=== PATIENT | female | born 2000 | race Caucasian/White ===

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

== ENCOUNTER 2023-08-05 16:35 | Emergency (ER) | payer SELFPAY ==
[2023-08-05 17:41] LABS: BASOPHILS PERCENT AUTO 0.3 % (0.0-1.0); EOSINOPHILS PERCENT AUTO 0.1 % (0.0-6.0); HEMATOCRIT 42.3 % (37.0-47.0); HEMOGLOBIN 14.3 gm/dl (12.0-16.0); IMMATURE GRAN ABSOLUTE AUTO 0.04 K/mm3 (0.00-0.05); IMMATURE GRAN PERCENT AUTO 0.4 % (0.0-0.4); LYMPHOCYTES PERCENT AUTO 18.7 % (24.0-44.0); MEAN CORPUSCULAR HEMOGLOBIN 28.2 pg (28.0-32.0); MEAN CORPUSCULAR HGB CONC 33.8 g/dl (32.0-36.0); MEAN CORPUSCULAR VOLUME 83.4 fl (83.0-99.0); MEAN PLATELET VOLUME 8.1 fl (9.4-12.3); MONOCYTES ABSOLUTE AUTO 0.5 K/mm3 (0.0-0.8); MONOCYTES PERCENT AUTO 4.8 % (0.0-8.0); NEUTROPHILS PERCENT AUTO 75.7 % (41.0-71.0); PLATELET COUNT,PLT 419 K/mm3 (150-400); RED BLOOD CELL COUNT 5.07 M/mm3 (4.10-5.30); WHITE BLOOD CELL COUNT,WBC 10.59 K/mm3 (3.9-11.3)
[2023-08-05 17:52] LABS: APPEARANCE,URINE CLEAR (Clear); BILIRUBIN,URINE NEGATIVE (Negative); COLOR,URINE YELLOW (Yellow); GLUCOSE,URINE NEGATIVE (Negative); KETONES,URINE NEGATIVE (Negative); LEUKOCYTE ESTERASE,URINE NEGATIVE (Negative); NITRITE,URINE NEGATIVE (Negative); OCCULT BLOOD,URINE NEGATIVE (Negative); PH,URINE 6.5 (5.0-8.0); PROTEIN,URINE NEGATIVE (Negative); UROBILINOGEN,URINE 0.2 (0.2-1.0)
[2023-08-05 18:02] LABS: ALBUMIN 3.9 g/dl (3.4-5.0); ANION GAP 17.8 (5-15); BILIRUBIN TOTAL 0.5 mg/dL (0.2-1.0); BUN/CREATININE RATIO 8.9 (14-18); CALCIUM 9.6 mg/dL (8.5-10.1); CREATININE 0.9 mg/dL (0.55-1.02); EST CRCL DRUG DOSING (CG) 96.15 mL/min; POTASSIUM,K 3.8 mEq/L (3.5-5.1); PROTEIN TOTAL,TP 7.9 g/dl (6.4-8.2)
[2023-08-05] MEDS: Lactated Ringers 1,000 ML IV ONE (18:13)
[2023-08-05 18:15] LABS: LACTIC ACID 1.5 mmol/L (0.4-2.0)
[2023-08-05] MEDS: Prochlorperazine 10 MG/2 ML SDV IVPUSH ONE (18:15)
[2023-08-05] MEDS: diphenhydrAMINE 50 MG/ML SDV IVPUSH ONE (18:17)
[2023-08-05] MEDS: Sodium Chloride 0.9% 10 ML Syringe FLUSH PRN (18:20)
[2023-08-05 18:26] LABS: AMPHETAMINES SCREEN, URINE PRESUMPTIVE POSITIVE (CUTOFF=500); METHAMPHETAMINES SCREEN, URINE PRESUMPTIVE POSITIVE (CUTOFF=500)
[2023-08-05 18:27] LABS: C-REACTIVE PROTEIN 0.14 mg/dL (<0.30); TROPONIN I HIGH SENSITIVITY < 4 pg/mL (<=51)
[2023-08-05 18:27] LABS: BARBITURATE SCREEN,URINE NEGATIVE (CUTOFF=200); BENZODIAZEPINES SCREEN,URINE NEGATIVE (CUTOFF=150); BUPRENORPHINE SCREEN,URINE NEGATIVE (CUTOFF=10); METHADONE SCREEN, URINE NEGATIVE (CUTOFF=200); OXYCODONE SCREEN,URINE NEGATIVE (CUT0FF=100); THC SCREEN,URINE 20 NG/ML NEGATIVE (CUTOFF=50)
[2023-08-05 21:47] VITALS: BP 113/60; PULSE 109
== END 2023-08-05 21:42 ==
LOC: JD.ED 16:35
DX: F11.23 Opioid dependence with withdrawal (principal); F19.10 Other psychoactive substance abuse, uncomplicated; E66.9 Obesity, unspecified; Z86.16 Personal history of COVID-19; Z91.011 Allergy to milk products; Z68.29 Body mass index [BMI] 29.0-29.9, adult
CPT/HCPCS: 36415; 71046; 80053; 80306; 80307; 81003; 83605; 84484; 84702; 85025; 86140; 93005; 96361; 96374; 96375; 99284; J0780; J1200; J3490; J7120

== ENCOUNTER 2023-10-10 09:51 | Emergency (ER) | payer SELFPAY ==
[2023-10-10 10:13] VITALS: PULSE 65
[2023-10-10] MEDS: Amoxicillin/Clavulanate K 875-125 MG Tab PO ONE (12:20)
[2023-10-10] MEDS: Ketorolac 60 MG/2 ML SDV IM ONE (12:21)
[2023-10-10 15:16] VITALS: BP 122/87
== END 2023-10-10 12:25 | disposition home or self-care (01) ==
LOC: JD.ED 09:51
DX: K04.7 Periapical abscess without sinus (principal); F17.210 Nicotine dependence, cigarettes, uncomplicated; Z91.011 Allergy to milk products; Z79.899 Other long term (current) drug therapy; Z86.16 Personal history of COVID-19
CPT/HCPCS: 96372; 99283; A9270; J1885